=== PATIENT | female | born 2000 | race Two or more races ===

== ENCOUNTER 2020-07-08 17:09 | Emergency (ER) | payer SELFPAY ==
[2020-07-08 17:15] VITALS: BP 133/76
[2020-07-08] MEDS ORDERED: IBUPROFEN 800 MG TABLET PO ONE (17:35)
[2020-07-08] MEDS ORDERED: DIAZEPAM 5 MG TABLET PO ONE (17:35)
--- NOTE | 2020-07-08 17:38 | ER Document Report ---
HPI - HPI Patient complains to provider of: Right jaw pain Time Seen by Provider: 07/08/20 17:28 Onset: This afternoon Onset/Duration: Sudden Quality of pain: Achy Pain Level: 3 Context: Patient states that she yawned and felt a pop in the right side of her jaw. Patient states since then she has had pain with movement of her jaw. Patient denies any recent trauma. Patient denies any recent dental work. Patient does report that she chews gum frequently. Associated Symptoms: Other - Right jaw pain Exacerbated by: Movement Relieved by: Denies Similar symptoms previously: No Recently seen / treated by doctor: No - ROS ROS below otherwise negative: Yes Systems Reviewed and Negative: Yes All other systems reviewed and negative - EENT Notes: Right jaw pain - GASTROINTESTINAL Gastrointestinal: DENIES: Nausea, Patient vomiting - REPRODUCTIVE Reproductive: DENIES: : - MUSCULOSKELETAL Musculoskeletal: DENIES: Neck Pain - DERM Skin Color: Normal Skin Problems: None Past Medical History - General Information source: Patient - Social History Smoking Status: Never Smoker Frequency of alcohol use: None Drug Abuse: None 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 IN LAST 30 DAYS: No - HEENT HEENT: Atraumatic, Normal ENT Exam, Normocephalic. negative: Pharyngeal Tenderness, Tympanic Membrane Red, Tympanic Membrane Bulging Notes: Right TMJ joint tenderness, normal bite, no crepitus appreciated with opening and closing the mouth - NECK Neck: Normal Inspection, Supple - RESPIRATORY Respiratory: Breath Sounds Normal, No Respiratory Distress - CARDIOVASCULAR Cardiovascular: Regular Rate, Regular Rhythm - MUSCULOSKELETAL/EXTREMETIES Musculoskeletal/Extremeties: MAEW - NEURO Level of Consciousness: Awake, Alert, Appropriate Motor/Sensory: No Motor Deficit - DERM Integumentary: Warm, Dry, No Rash Course - Re-evaluation Re-evalutation: 07/08/20 17:36 Patient with right TMJ joint tenderness worse with range of motion, no concern for dislocation or subluxation, patient does admit to chewing gum frequently. Patient encouraged to remain on a soft diet and avoid gum chewing. Patient encouraged to follow-up with ENT for any continued problems - Vital Signs Vital signs: Temp Pulse Resp BP Pulse Ox 98.2 F 85 20 133/76 H 98 07/08/20 17:15 07/08/20 17:15 07/08/20 17:15 07/08/20 17:15 07/08/20 17:15 Discharge - Discharge Clinical Impression: TMJ arthralgia Qualifiers: Laterality: right Qualified Code(s): M26.621 - Arthralgia of right temporomandibular joint Condition: Stable Disposition: HOME, SELF-CARE Instructions: Temporomandibular Joint Injury ([facility]) Additional Instructions: Return immediately for any new or worsening symptoms Followup with your primary care provider, call tomorrow to make a followup appointment Avoid gum chewing, eat a soft diet Follow-up with an gear tooth 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
== END 2020-07-08 17:43 | disposition home or self-care (01) ==
LOC: ER 17:09
DX: M26.621 Arthralgia of right temporomandibular joint (principal)
CPT/HCPCS: 99283